=== PATIENT | female | born 1940 | race Caucasian/White ===

== ENCOUNTER 2017-04-21 12:10 | Outpatient (CLI) | payer MEDICARE, OTHER ==
[2017-04-21 18:03] LABS: BILIRUBIN,URINE NEGATIVE (NEGATIVE)
[2017-04-21 18:29] LABS: UR CULTURE IF IND INDICATED; WBC,URINE >25 /HPF (0-5)
== END 2017-04-21 12:11 | disposition home or self-care (01) ==
LOC: LAB.R 12:10
PROVIDERS: ATTEND Nurse Practitioner Family
DX: N39.0 Urinary tract infection, site not specified (principal)
CPT/HCPCS: 81001; 87086

== ENCOUNTER 2017-06-24 10:17 | Outpatient (CLI) | payer MEDICARE, OTHER | END 2017-06-24 10:18 | disposition home or self-care (01) | LOC: LAB.R 10:17 | PROVIDERS: ATTEND Nurse Practitioner Family | DX: N39.0 Urinary tract infection, site not specified (principal) | CPT/HCPCS: 87086 ==

== ENCOUNTER 2017-08-17 11:24 | Emergency (ER) | payer MEDICARE, OTHER ==
[2017-08-17 11:31] VITALS: BP 147/71
[2017-08-17] MEDS ORDERED: DEXAMETHASONE 10 MG/ML VIAL PO STA (13:40)
--- NOTE | 2017-08-17 13:43 | ED Physician Documentation ---
PD HPI SKIN - Stated complaint Stated Complaint: TORSO RASH - Chief complaint Chief Complaint: Wound - History obtained from History obtained from: Patient - History of Present Illness Timing - onset: Yesterday Timing - duration: Days (1) Timing - details: Gradual onset, Still present Location: Abdomen, RLE, LLE Quality / character: Itchy, Discolored Improved by: Benadryl Associated symptoms: No: Fever, Myalgias, Joint pain, Headache, Facial swelling , Dyspnea, Abd pain, N/V/D, Urinary sx Contributing factors: Other (recent stress with a memorial service for a friend) . No: Exposed to medication, Exposed to food, Exposed to soap / lotion, Exposed to Poison brendan/oak, Insect bite /sting, Recent illness Similar symptoms before: Has not had sx before Recently seen: Not recently seen - Additional information Additional information: Previously healthy 77-year-old female has developed some urticaria over her upper abdomen that is been quite itchy. This started out yesterday and she did take some Benadryl which helped a bit with the itching. When she awoke today she continued to have the redness and she has noted some spreading of the redness to her legs.She is under some stress but has not had any new exposures. Review of Systems Constitutional: denies: Fever Eyes: denies: Decreased vision Ears: denies: Ear pain Nose: denies: Congestion Throat: denies: Sore throat Cardiac: denies: Chest pain / pressure Respiratory: denies: Dyspnea, Cough GI: denies: Abdominal Pain, Nausea, Vomiting : denies: Dysuria, Frequency Skin: reports: Rash. 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 - Present Medications Home Medications: Ambulatory Orders Medication Instructions Recorded Confirmed Atenolol 50 mg PO DAILY 08/17/17 08/17/17 Fluticasone [Flonase] 1 sprays FUNMILAYO DAILY 08/17/17 08/17/17 Fluticasone/Salmeterol [Advair 1 each IH DAILY 08/17/17 08/17/17 100-50 Diskus] Hydrochlorothiazide 12.5 mg PO DAILY 08/17/17 08/17/17 raNITIdine [Zantac] 150 mg PO DAILY 08/17/17 08/17/17 - Allergies Allergies/Adverse Reactions: Allergies Allergy/AdvReac Type Severity Reaction Status Date / Time codeine Allergy Headache Verified 08/17/17 11:28 - Social History Does the pt smoke?: No Smoking Status: Never smoker Does the pt drink ETOH?: No Does the pt have substance abuse?: No - Immunizations Immunizations are current?: Yes - POLST Patient has POLST: No PD ED PE NORMAL - Vitals Vital signs reviewed: Yes (Hypertensive) - General General: Alert and oriented X 3, No acute distress, Well developed/nourished - HEENT HEENT: Atraumatic, PERRL, EOMI - Neck Neck: Supple, no meningeal sign - Cardiac Cardiac: RRR, No murmur - Respiratory Respiratory: No respiratory distress, Clear bilaterally - Abdomen Abdomen: Soft, Non tender - Derm Derm: Normal color, Warm and dry, Other (There is erythema with a slight raised consistent with urticaria over the abdomen and extending across the front of the abdomen to the flanks and across the anterior thighs. There is no involvement of the upper extremity and no involvement of the calves.) - Extremities Extremities: No deformity, No edema - Neuro Neuro: No motor deficit, No sensory deficit Eye Opening: Spontaneous Motor: Obeys Commands Verbal: Oriented GCS Score: 15 - Psych Psych: Normal mood, Normal affect Results - Vitals Vitals: Vital Signs - 24 hr 08/17/17 11:29 Temperature 37.0 C Heart Rate 70 Respiratory 16 Rate Blood Pressure 147/71 H O2 Saturation 97 Oxygen O2 Source Room air PD MEDICAL DECISION MAKING - ED course Complexity details: considered differential, d/w patient ED course: 77-year-old female with a urticarial reaction is given dexamethasone 10 mg orally.I have discussed with her continuing the Benadryl for the next 2 days on a regular basis and following up with Dr. De La Rosa should she have recurrence of her urticaria. Departure - Departure Disposition: 01 Home, Self Care Clinical Impression: Urticaria Condition: Stable Instructions: ED Urticaria Follow-Up: Rui De La Rosa MD [Primary Care Provider] - Comments: Take Benadryl 25-50 mg every 6 hours for the next 2 days. If your rash recurs or persists follow-up with Dr. Zaragoza
== END 2017-08-17 13:50 | disposition home or self-care (01) ==
LOC: ED 11:24
DX: L50.9 Urticaria, unspecified (principal); J45.909 Unspecified asthma, uncomplicated
CPT/HCPCS: 99282; 99283

== ENCOUNTER 2017-09-29 09:56 | Outpatient (CLI) | payer MEDICARE, OTHER ==
[2017-09-29 17:54] LABS: BASOPHILS # (AUTO) 0.1 10^3/uL (0.0-0.1); BASOPHILS % (AUTO) 0.8 %; EOSINOPHILS # (AUTO) 0.3 10^3/uL (0.0-0.7); EOSINOPHILS % (AUTO) 4.2 %; HGB - HEMOGLOBIN 12.7 g/dL (12.0-16.0); LYMPHOCYTES # (AUTO) 2.1 10^3/uL (1.5-3.5); LYMPHOCYTES % (AUTO) 28.8 %; MEAN CORPUSCULAR VOLUME 84.2 fL (81.0-99.0); MEAN PLATELET VOLUME 8.9 fL (7.9-10.8); MONOCYTES # (AUTO) 0.6 10^3/uL (0.0-1.0); MONOCYTES % (AUTO) 7.9 %; NEUTROPHILS # (AUTO) 4.3 10^3/uL (1.5-6.6); NEUTROPHILS % (AUTO) 58.3 %; PLT - PLATELET COUNT 227 10^3/uL (130-450); RED BLOOD COUNT 4.71 10^6/uL (4.20-5.40); RED CELL DISTRIBUTION WIDTH 15.7 % (12.0-15.0); WHITE BLOOD COUNT 7.3 x10^3/uL (4.8-10.8)
[2017-09-29 18:34] LABS: ALBUMIN 3.8 g/dL (3.2-5.5); ALBUMIN/GLOBULIN RATIO 1.4 (1.0-2.2); ALKALINE PHOSPHATASE 59 IU/L (42-121); ALT ALANINE AMINOTRANSFERASE 23 IU/L (10-60); AST ASPARTATE AMINOTRANSFERASE 20 IU/L (10-42); BILIRUBIN,TOTAL 0.5 mg/dL (0.2-1.0); BUN - BLOOD UREA NITROGEN 22 mg/dL (6-20); CALCIUM 9.2 mg/dL (8.5-10.3); CARBON DIOXIDE - CO2 28 mmol/L (21-32); CHLORIDE 106 mmol/L (101-111); CHOL/HDL RATIO 3.3 (<4.4); CHOLESTEROL 180 mg/dL; CREATININE 0.8 mg/dL (0.4-1.0); GFR - MDRD 70 (>89); GLUCOSE 91 mg/dL (70-100); HDL CHOLESTEROL 55 mg/dL; LDL CHOLESTEROL,CALCULATED 114 mg/dL; LDL/HDL RATIO 2.1 (<4.4); SODIUM 140 mmol/L (135-145); TOTAL PROTEIN 6.5 g/dL (6.7-8.2); VLDL CHOLESTEROL 11 mg/dL
== END 2017-09-29 09:57 | disposition home or self-care (01) ==
LOC: LAB.F 09:56
PROVIDERS: ATTEND Family Medicine
DX: I10 Essential (primary) hypertension (principal); Z13.220 Encounter for screening for lipoid disorders; E01.0 Iodine-deficiency related diffuse (endemic) goiter
CPT/HCPCS: 36415; 80053; 80061; 83721; 84443; 85025

== ENCOUNTER 2018-06-03 10:25 | Outpatient (CLI) | payer MEDICARE, OTHER ==
--- NOTE | 2018-06-04 09:04 | DEXA Report ---
Reason: ASYMPTOMATIC MENOPAUSAL STATE Procedure Date: 06/03/2018 Accession Number: [id number] / [id number] Procedure: DEX - Dexa Spine and/or Hip CPT Code: FULL RESULT: EXAM: Dexa Spine and/or Hip DATE: 06/03/2018 12:07 PM CLINICAL HISTORY: ASYMPTOMATIC MENOPAUSAL STATE TECHNIQUE: Dual energy x-ray absorptiometry (DXA) was performed on a [employer] System. Regions measured are the AP Spine, femoral neck, and if needed forearm. COMPARISON: None. In accordance with the International Society for Clinical Densitometry (ISCD) guidelines, data from previous exams may be reanalyzed using current recommendations and techniques. This is done to allow a more accurate basis for comparison with the current study. FINDINGS: The data for the lumbar spine is as follows: BMD (g/cm/cm) T-SCORE Z-SCORE REGION L1 0.992 -1.1 -0.1 L2 1.080 -1.0 0.1 L3 1.180 -0.2 0.9 L4 1.028 -1.4 -0.4 TOTAL 1.070 -0.9 0.1 NOTE: All evaluable vertebrae are used for classification The data for the hip is as follows: BMD (g/cm/cm) T-SCORE Z-SCORE REGION Neck 0.895 -1.0 0.5 TOTAL 0.869 -1.1 0.2 NOTE: The femoral neck or total proximal femur, whichever is lowest, is used for classification. IMPRESSION: THE WHO CLASSIFICATION BASED ON THE INTERNATIONAL REFERENCE STANDARD IS OSTEOPENIA. THE FRACTURE RISK IS INCREASED. RECOMMENDATION: Patients with diagnosis of osteoporosis or osteopenia should have regular bone mineral density assessment. For those eligible for Medicare, routine testing is allowed once every 2 years. Testing frequency can be increased for patients who have rapidly progressing disease or for those who are receiving medical therapy to restore bone mass. COMMENT: World Health Organization (WHO) definitions for osteoporosis and osteopenia: NORMAL BMD: T-score at -1.0 or higher, fracture risk is low OSTEOPENIA BMD: T-score between -1.0 and -2.5, fracture risk is increased. OSTEOPOROSIS BMD: T-score at -2.5 or lower, fracture risk is high. National Osteoporosis Foundation recommends: 1. Obtain adequate dietary calcium (at least 1200 mg per day) and vitamin D (400-800 international units per day). 2. Participate, as appropriate, in regular weightbearing and muscle-strengthening exercise. 3. Avoid tobacco use and reduce alcohol and caffeine intake. 4. For more detailed information see the website at www.NOF.org.
== END 2018-06-03 10:26 | disposition home or self-care (01) ==
LOC: DI 10:25
PROVIDERS: ATTEND Internal Medicine
DX: M85.89 Other specified disorders of bone density and structure, multiple sites (principal); Z78.0 Asymptomatic menopausal state
CPT/HCPCS: 77080

== ENCOUNTER 2019-02-26 08:00 | Outpatient (CLI) | payer MEDICARE, OTHER | END 2019-02-26 23:59 | disposition home or self-care (01) | LOC: LAB.F 08:00 | PROVIDERS: ATTEND Registered Nurse | DX: N30.90 Cystitis, unspecified without hematuria (principal) | CPT/HCPCS: 81002 ==

== ENCOUNTER 2019-03-04 16:16 | Outpatient (CLI) | payer MEDICARE, OTHER | END 2019-03-04 23:59 | disposition home or self-care (01) | LOC: LAB.R 16:16 | PROVIDERS: ATTEND Family Medicine | DX: N30.90 Cystitis, unspecified without hematuria (principal) | CPT/HCPCS: 87077; 87086; 87181 ==

== ENCOUNTER 2019-03-10 15:31 | Outpatient (CLI) | payer MEDICARE, OTHER ==
--- NOTE | 2019-03-15 14:56 | Mammography Report ---
Reason: SCREENING MAMMO Procedure Date: 03/10/2019 Accession Number: [id number] / [id number] Procedure: ALDAIR - Screening Mammo w/Rufus CPT Code: FULL RESULT: EXAM: Screening Mammo w/Rufus DATE: 03/10/2019 4:07 PM CLINICAL HISTORY: Routine screening TECHNIQUE: (B) - Bilateral CC and MLO views were obtained. COMPARISON: 05/06/2016 and 03/09/2014 PARENCHYMAL PATTERN: (A) - The breasts demonstrate scattered fibroglandular densities bilaterally. FINDINGS: No significant interval change. There are no suspicious masses, calcifications, or areas of distortion. IMPRESSION: Negative examination. BI-RADS category 1. RECOMMENDATION: (ANNUAL) - Recommend routine annual screening mammography. BI-RADS CATEGORY: (1) - Negative. STANDARD QUALIFYING STATEMENTS: 1. This examination was not reviewed with the aid of Computer-Aided Detection (CAD). 2. A negative or benign imaging report should not preclude biopsy if clinically suspicious findings are present. 3. Dense breasts may obscure an underlying neoplasm. 4. This examination was reviewed with the aid of 3D breast imaging (tomosynthesis).
== END 2019-03-10 15:32 | disposition home or self-care (01) ==
LOC: DI 15:31
DX: Z12.31 Encounter for screening mammogram for malignant neoplasm of breast (principal)
CPT/HCPCS: 77063; 77067

== ENCOUNTER 2019-10-27 12:29 | Emergency (ER) | payer MEDICARE, OTHER ==
--- NOTE | 2019-10-27 13:02 | ED Physician Documentation ---
PD HPI HEAD INJURY - Stated complaint Stated Complaint: GLF/HEAD LAC/LT KNEE INJURY - Chief complaint Chief Complaint: Trauma Hd/Nk - History obtained from History obtained from: Patient - History of Present Illness Mechanism of head injury: Fell (she was dragging branch and tripped on uneven edge in driveway and fell forward onto knees and elbow and struck top of head against object. no LOC, not on blood thinners. No LOC nor confusion. Has lac frontal scalp, right anterior knee and left elbow.) Timing - onset: Today Location of injury: Front Associated symptoms: No: LOC, AMS, Nausea / vomiting Symptoms worsen with: Palpation, Movement Contributing factors: No: Anticoagulated, Intoxicated Similar symptoms before: Has not had sx before Recently seen: Not recently seen Review of Systems Eyes: denies: Loss of vision, Photophobia Ears: denies: Ear pain, Drainage/discharge Throat: denies: Sore throat Respiratory: denies: Cough Neurologic: denies: Generalized weakness, Focal weakness, Numbness, Difficulty speaking Psychiatric: denies: Hallucinations Endocrine: denies: Weight loss PD PAST MEDICAL HISTORY - Past Medical History Cardiovascular: None Respiratory: Asthma Neuro: None Endocrine/Autoimmune: None - Past Surgical History Past Surgical History: Yes General: 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, 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 - Present Medications Home Medications: Ambulatory Orders Medication Instructions Recorded Confirmed Fluticasone [Flonase] 1 sprays FUNMILAYO DAILY 08/17/17 08/17/17 Fluticasone/Salmeterol [Advair 1 each IH DAILY 08/17/17 08/17/17 100-50 Diskus] Hydrochlorothiazide 12.5 mg PO DAILY 08/17/17 08/17/17 atenoloL [Atenolol] 50 mg PO DAILY 08/17/17 08/17/17 raNITIdine [Zantac] 150 mg PO DAILY 08/17/17 08/17/17 - Allergies Allergies/Adverse Reactions: Allergies Allergy/AdvReac Type Severity Reaction Status Date / Time codeine Allergy Headache Verified 10/27/19 12:57 - Social History Does the pt smoke?: No Smoking Status: Never smoker Does the pt drink ETOH?: No Does the pt have substance abuse?: No - Immunizations Immunizations are current?: Yes - POLST Patient has POLST: No PD ED PE NORMAL - Vitals Vital signs reviewed: Yes - General General: Alert and oriented X 3, No acute distress, Well developed/nourished - HEENT HEENT: PERRL, EOMI, Pharynx benign, Dentition benign, Other (frontal scalpe with 3 cm laceration through scalp. NO FB nor active bleeding. ) - Neck Neck: Supple, no meningeal sign, No bony TTP, No adenopathy - Cardiac Cardiac: RRR, No murmur - Respiratory Respiratory: Clear bilaterally - Abdomen Abdomen: Soft, Non tender - Derm Derm: Normal color, Warm and dry - Extremities Extremities: Other (superficial avulsion of skin left knee. Laceration anterior right knee. Laceration left elbow through skin and exposing edge of bursa. Both joints have good full ROM. No joint effusion. ) - Neuro Neuro: Alert and oriented X 3, No motor deficit, No sensory deficit, Normal speech Results - Vitals Vitals: Vital Signs - 24 hr 10/27/19 10/27/19 12:50 14:48 Temperature 36.8 C 36.6 C Heart Rate 88 85 Respiratory 16 17 Rate Blood Pressure 136/98 H 127/85 H O2 Saturation 98 97 Oxygen O2 Source Room air Procedures - Laceration (location) frontal scalp Length in cm: 2.5 Wound type: Linear, Into subcut fat, Clean Neurovascular status: Sensory intact, Motor intact, Vascular intact Anesthesia: LET Wound Preparation: Irrigated copiously NS, Wound explored, To the base. No: FB identified Skin layer closure: Running Other: Patient tolerated well, No complications, Neurovascular intact, Tetanus UTD Complexity: Simple left elbow Length in cm: 2 Wound type: Linear, Into subcut fat (edge of bursa visible but not injured), Clean Neurovascular status: Sensory intact, Motor intact, Vascular intact Anesthesia: Lidocaine 2% with epi Wound Preparation: Irrigated copiously NS, Wound explored, To the base. No: FB identified Skin layer closure: Nylon, Prolene, Seymour, Running, Size #-0 - enter number (4) Other: Patient tolerated well, No complications right knee Length in cm: 3 Wound type: Irregular, Into subcut fat, Clean Neurovascular status: Sensory intact, Motor intact, Vascular intact Tendon involvement: Tendon intact. No: Tendon Injury Anesthesia: LET Wound Preparation: Irrigated copiously NS, Wound explored, To the base, Wound edges modified. No: FB identified Skin layer closure: Nylon, Interrupted, Running, Size #-0 - enter number PD MEDICAL DECISION MAKING - ED course Complexity details: considered differential (no concussive symptoms. No clinical bony fractures nor articular joint involvement. ), d/w patient Departure - Departure Disposition: 01 Home, Self Care Clinical Impression: Fall from slip, trip, or stumble Qualifiers: Encounter type: initial encounter Qualified Code(s): W01.0XXA - Fall on same level from slipping, tripping and stumbling without subsequent striking against object, initial encounter Scalp laceration Qualifiers: Encounter type: initial encounter Qualified Code(s): S01.01XA - Laceration without foreign body of scalp, initial encounter Knee laceration Qualifiers: Encounter type: initial encounter Laterality: left Qualified Code(s): S81.012A - Laceration without foreign body, left knee, initial encounter Elbow laceration Qualifiers: Encounter type: initial encounter Laterality: left Qualified Code(s): S51.012A - Laceration without foreign body of left elbow, initial encounter Condition: Stable Record reviewed to determine appropriate education?: Yes Instructions: ED Laceration All Follow-Up: Sarthak San MD [Primary Care Provider] - Comments: Keep the knee laceration with the Steri-Strips dry for a few days until the Steri-Strips fall off. Then assume normal wound care with cleaning gently with soap and water and applying antibiotic ointment. You can do that initially to the other lacerations right off with the scalp and the elbow. it is okay to wash and shower. Clean off the wound twice a day with soap and water, or peroxide and water. Apply some antibiotic ointment to it to keep it moist. Also to watch for signs of infection such as purulence, redness or increasing pain. Return to your primary care or the ER at the specified time for suture removal. Suture removal 10 to 12 days. Discharge Date/Time: 10/27/19 14:48
[2019-10-27] MEDS ORDERED: LIDOCAINE-EPINEPH-TETRACAINE 3 ML SYRINGE TOP STA (13:16)
[2019-10-27] MEDS ORDERED: ACETAMINOPHEN 325 MG TABLET PO STA (13:17)
[2019-10-27] MEDS ORDERED: LIDOCAINE 2%-EPI 1:100000 20 ML MDV SUBQ STA (13:17)
[2019-10-27] MEDS ORDERED: BACITRACIN ZINC OINT 1 PACKET TOP STA (14:30)
[2019-10-27 14:49] VITALS: BP 127/85
== END 2019-10-27 14:48 | disposition home or self-care (01) ==
LOC: ED 12:29
DX: S01.01XA Laceration without foreign body of scalp, initial encounter (principal); S81.011A Laceration without foreign body, right knee, initial encounter; S51.012A Laceration without foreign body of left elbow, initial encounter; W01.10XA Fall on same level from slipping, tripping and stumbling with subsequent striking against unspecified object, initial encounter; Y93.H2 Activity, gardening and landscaping; Y92.008 Other place in unspecified non-institutional (private) residence as the place of occurrence of the external cause
CPT/HCPCS: 12002; 99282; 99284; A9270

== ENCOUNTER 2020-01-10 14:02 | Outpatient (CLI) | payer MEDICARE, OTHER ==
--- NOTE | 2020-01-10 18:05 | XRAY Report ---
PROCEDURE: Chest 2 View X-Ray INDICATIONS: CHRONIC COUGH TECHNIQUE: 2 view(s) of the chest. COMPARISON: 11/20/2015 and 01/29/2016. FINDINGS: Surgical changes and devices: None. Lungs and pleura: No pleural effusions or pneumothorax. Lungs are clear of acute opacities. Focal o pacity in the lateral periphery of the left lung base is stable compared to prior exams. Mediastinum: Mediastinal contours are normal. Heart size is normal. Bones and chest wall: No suspicious bony abnormalities. Soft tissues appear unremarkable. IMPRESSION: No acute cardiopulmonary disease process. Reviewed by: Marychuy Reddy MD, PhD on 01/10/2020 6:04 PM PDT Approved by: Marychuy Reddy MD, PhD on 01/10/2020 6:04 PM PDT Station ID: [id number]
[2020-01-10 20:03] LABS: BASOPHILS # (AUTO) 0.1 10^3/uL (0.0-0.1); BASOPHILS % (AUTO) 0.7 %; EOSINOPHILS # (AUTO) 0.1 10^3/uL (0.0-0.7); HGB - HEMOGLOBIN 13.2 g/dL (12.0-16.0); LYMPHOCYTES # (AUTO) 2.2 10^3/uL (1.5-3.5); LYMPHOCYTES % (AUTO) 20.9 %; MEAN CORPUSCULAR HEMOGLOBIN 28.1 pg (27.0-31.0); MEAN CORPUSCULAR HGB CONC 30.8 g/dL (32.0-36.0); MEAN CORPUSCULAR VOLUME 91.1 fL (81.0-99.0); MONOCYTES # (AUTO) 0.7 10^3/uL (0.0-1.0); MONOCYTES % (AUTO) 6.4 %; NEUTROPHILS # (AUTO) 7.4 10^3/uL (1.5-6.6); NEUTROPHILS % (AUTO) 70.5 %; PLT - PLATELET COUNT 282 10^3/uL (130-450); RED CELL DISTRIBUTION WIDTH 14.8 % (12.0-15.0); WHITE BLOOD COUNT 10.6 x10^3/uL (4.8-10.8)
[2020-01-10 20:20] LABS: ALBUMIN 4.2 g/dL (3.2-5.5); ALBUMIN/GLOBULIN RATIO 1.8 (1.0-2.2); BILIRUBIN,TOTAL 0.9 mg/dL (0.2-1.0); CALCIUM 9.9 mg/dL (8.5-10.3); TOTAL PROTEIN 6.6 g/dL (6.7-8.2)
== END 2020-01-10 14:03 | disposition home or self-care (01) ==
LOC: DI.S 14:02
PROVIDERS: ATTEND Family Medicine
DX: R05 Cough (principal); J20.9 Acute bronchitis, unspecified
CPT/HCPCS: 36415; 71046; 80053; 85025

== ENCOUNTER 2020-04-17 13:00 | Outpatient (CLI) | payer MEDICARE, OTHER | END 2020-04-17 23:59 | disposition home or self-care (01) | LOC: LAB.R 13:00 | PROVIDERS: ATTEND Physician Assistant | DX: N39.0 Urinary tract infection, site not specified (principal) | CPT/HCPCS: 87077; 87086; 87181 ==

== ENCOUNTER 2020-05-18 08:00 | Outpatient (CLI) | payer MEDICARE, OTHER | END 2020-05-18 23:59 | disposition home or self-care (01) | LOC: LAB.R 08:00 | PROVIDERS: ATTEND Physician Assistant Medical | DX: R31.9 Hematuria, unspecified (principal) | CPT/HCPCS: 87077; 87086; 87181 ==

== ENCOUNTER 2020-07-27 08:00 | Outpatient (CLI) | payer MEDICARE, OTHER | END 2020-07-27 23:59 | disposition home or self-care (01) | LOC: LAB.S 08:00 | PROVIDERS: ATTEND Physician Assistant | DX: N39.0 Urinary tract infection, site not specified (principal) | CPT/HCPCS: 87086 ==

== ENCOUNTER 2020-08-21 09:45 | Outpatient (CLI) | payer MEDICARE, OTHER ==
--- NOTE | 2020-08-21 15:07 | DEXA Report ---
PROCEDURE: Dexa Spine and/or Hip INDICATIONS: POST MENOPAUSAL TECHNIQUE: Dual energy x-ray absorptiometry (DXA) was performed on a [employer] System. Regions measur ed are the AP Spine, femoral neck, and if needed forearm. COMPARISON: DEXA 06/03/2018 FINDINGS: Lumbar Spine: Bone Mineral Density 1.098 g/cm/cm,T score -0.7, compared to -0.9 Left Hip: Bone Mineral Density 0.827 g/cm/cm,T score -1.4, compared to -1.1 Left Femoral Neck: Bone Mineral Density 0.838 g/cm/cm, T score -1.4, compared to -1.0 (T score greater or equal to -1.0: NORMAL) (T score from -1.1 to -2.4: OSTEOPENIA) (T score less than or equal to -2.5 to: OSTEOPOROSIS) Impression: Mild osteopenia within the left hip and femoral neck, slightly progressive compared to pr ior exam. Patients with diagnosis of osteoporosis or osteopenia should have regular bone mineral density assess ment. For those eligible for Medicare, routine testing is allowed once every 2 years. Testing frequ ency can be increased for patients who have rapidly progressing disease or for those who are receivin g medical therapy to restore bone mass. Reviewed by: Teri Haro MD on 08/21/2020 2:06 PM [facility] Approved by: Teri Haro MD on 08/21/2020 2:06 PM [facility] Station ID: [id number]
== END 2020-08-21 09:46 | disposition home or self-care (01) ==
LOC: DI 09:45
PROVIDERS: ATTEND Registered Nurse
DX: M85.88 Other specified disorders of bone density and structure, other site (principal); Z78.0 Asymptomatic menopausal state

== ENCOUNTER 2021-01-12 09:21 | Outpatient (CLI) | payer MEDICARE, OTHER ==
[2021-01-12 14:29] LABS: BASOPHILS # (AUTO) 0.1 10^3/uL (0.0-0.1); BASOPHILS % (AUTO) 0.9 %; EOSINOPHILS # (AUTO) 0.1 10^3/uL (0.0-0.7); EOSINOPHILS % (AUTO) 1.8 %; HCT - HEMATOCRIT 41.6 % (37.0-47.0); HGB - HEMOGLOBIN 13.1 g/dL (12.0-16.0); LYMPHOCYTES # (AUTO) 1.8 10^3/uL (1.5-3.5); LYMPHOCYTES % (AUTO) 25.6 %; MEAN CORPUSCULAR HEMOGLOBIN 28.5 pg (27.0-31.0); MEAN CORPUSCULAR HGB CONC 31.5 g/dL (32.0-36.0); MEAN CORPUSCULAR VOLUME 90.4 fL (81.0-99.0); MEAN PLATELET VOLUME 10.6 fL (7.9-10.8); MONOCYTES # (AUTO) 0.4 10^3/uL (0.0-1.0); MONOCYTES % (AUTO) 6.3 %; NEUTROPHILS # (AUTO) 4.6 10^3/uL (1.5-6.6); NEUTROPHILS % (AUTO) 65.1 %; PLT - PLATELET COUNT 225 10^3/uL (130-450); RED CELL DISTRIBUTION WIDTH 15.2 % (12.0-15.0)
[2021-01-12 15:01] LABS: ALBUMIN 3.9 g/dL (3.2-5.5); ALBUMIN/GLOBULIN RATIO 1.6 (1.0-2.2); ALKALINE PHOSPHATASE 62 IU/L (42-121); ALT ALANINE AMINOTRANSFERASE 24 IU/L (10-60); AST ASPARTATE AMINOTRANSFERASE 24 IU/L (10-42); BILIRUBIN,TOTAL 0.9 mg/dL (0.2-1.0); BUN - BLOOD UREA NITROGEN 17 mg/dL (6-20); CALCIUM 9.1 mg/dL (8.5-10.3); CARBON DIOXIDE - CO2 29 mmol/L (21-32); CHLORIDE 101 mmol/L (101-111); CHOL/HDL RATIO 2.8 (<4.4); CHOLESTEROL 167 mg/dL; CREATININE 0.7 mg/dL (0.4-1.0); GFR - MDRD 81 (>89); GLUCOSE 96 mg/dL (70-100); HDL CHOLESTEROL 59 mg/dL; LDL CHOLESTEROL,CALCULATED 97 mg/dL; LDL/HDL RATIO 1.6 (<4.4); POTASSIUM 3.6 mmol/L (3.5-5.0); SODIUM 138 mmol/L (135-145); TOTAL PROTEIN 6.4 g/dL (6.7-8.2); TRIGLYCERIDES 53 mg/dL; VLDL CHOLESTEROL 11 mg/dL
[2021-01-12 15:21] LABS: THYROID STIMULATING HORMONE 2.42 uIU/mL (0.34-5.60)
== END 2021-01-12 09:22 | disposition home or self-care (01) ==
LOC: LAB.S 09:21
PROVIDERS: ATTEND Registered Nurse
DX: R05 Cough (principal); I10 Essential (primary) hypertension; J45.901 Unspecified asthma with (acute) exacerbation
CPT/HCPCS: 36415; 80053; 80061; 83721; 84443; 85025

== ENCOUNTER 2021-04-19 11:25 | Outpatient (CLI) | payer MEDICARE, OTHER ==
--- NOTE | 2021-04-20 09:01 | Mammography Report ---
BILATERAL DIGITAL SCREENING MAMMOGRAM 3D/2D: 04/19/2021 CLINICAL: Routine screening. Comparison is made to exams dated: 03/10/2019 mammogram, 05/06/2016 mammogram, and 03/09/2014 mammogram - [facility]. There are scattered fibroglandular elements in both breasts. No significant masses, calcifications, or other findings are seen in either breast. There has been no significant interval change. IMPRESSION: NEGATIVE There is no mammographic evidence of malignancy. A 1 year screening mammogram is recommended. This exam was interpreted at Station ID: [id number]. NOTE: For mammograms, a report in lay terms will be sent to the patient. Approximately 15% of breast malignancies will not be visualized mammographically. In the management of a palpable breast mass, a negative mammogram must not discourage biopsy of a clinically suspicious lesion. Electronically Signed By: Glen Jewell M.D. slc/penrad:04/19/2021 12:48:26 ACR BI-RADS Category 1: Negative 3341F PARENCHYMAL PATTERN: (A) - The breast(s) demonstrate(s) scattered fibroglandular densities. BI-RADS CATEGORY: (1) - 1 RECOMMENDATION: (ANNUAL) - Recommend routine annual screening mammography. [id number] 1 year screening LATERALITY: (B)
== END 2021-04-19 11:26 | disposition home or self-care (01) ==
LOC: DI 11:25
PROVIDERS: ATTEND Internal Medicine
DX: Z12.31 Encounter for screening mammogram for malignant neoplasm of breast (principal)

== ENCOUNTER 2021-05-14 06:17 | Day surgery (SDC) | payer MEDICARE, OTHER ==
[2021-05-14 06:54] VITALS: BP 138/87
[2021-05-14] MEDS ORDERED: LACTATED RINGERS 1,000 ML IV ONE (07:01)
== END 2021-05-14 06:18 | disposition home or self-care (01) ==
LOC: SDS 06:17
PROVIDERS: ATTEND Surgery
DX: Z12.11 Encounter for screening for malignant neoplasm of colon (principal); I48.91 Unspecified atrial fibrillation; Z53.9 Procedure and treatment not carried out, unspecified reason

== ENCOUNTER 2021-05-14 07:50 | Emergency (ER) | payer MEDICARE, OTHER ==
[2021-05-14 08:12] LABS: BASOPHILS # (AUTO) 0.1 10^3/uL (0.0-0.1); BASOPHILS % (AUTO) 0.5 %; EOSINOPHILS % (AUTO) 0.4 %; HCT - HEMATOCRIT 43.6 % (37.0-47.0); HGB - HEMOGLOBIN 14.2 g/dL (12.0-16.0); LYMPHOCYTES # (AUTO) 2.2 10^3/uL (1.5-3.5); LYMPHOCYTES % (AUTO) 21.9 %; MEAN CORPUSCULAR HEMOGLOBIN 28.9 pg (27.0-31.0); MEAN CORPUSCULAR HGB CONC 32.6 g/dL (32.0-36.0); MEAN CORPUSCULAR VOLUME 88.6 fL (81.0-99.0); MEAN PLATELET VOLUME 10.3 fL (7.9-10.8); MONOCYTES # (AUTO) 0.8 10^3/uL (0.0-1.0); MONOCYTES % (AUTO) 7.6 %; NEUTROPHILS # (AUTO) 6.8 10^3/uL (1.5-6.6); NEUTROPHILS % (AUTO) 69.3 %; PLT - PLATELET COUNT 257 10^3/uL (130-450); RED BLOOD COUNT 4.92 10^6/uL (4.20-5.40); RED CELL DISTRIBUTION WIDTH 15.1 % (12.0-15.0); WHITE BLOOD COUNT 9.9 x10^3/uL (4.8-10.8)
--- NOTE | 2021-05-14 08:25 | XRAY Report ---
PROCEDURE: Chest 1 View X-Ray INDICATIONS: Chest pain TECHNIQUE: One view of the chest was acquired. COMPARISON: CXR 01/10/2020. FINDINGS: Surgical changes and devices: None. Lungs and pleura: No pleural effusions or pneumothorax. Lungs appear clear and unchanged. Mediastinum: Mediastinal contours are unchanged. Heart size is prominent. Bones and chest wall: No suspicious bony lesions. Overlying soft tissues appear unremarkable. IMPRESSION: No acute cardiopulmonary abnormality identified. Reviewed by: Glen Jewell MD on 05/14/2021 8:24 AM PST Approved by: Glen Jewell MD on 05/14/2021 8:24 AM PST Station ID: [id number]
[2021-05-14 08:27] LABS: ALBUMIN/GLOBULIN RATIO 1.4 (1.0-2.2); BILIRUBIN,TOTAL 1.2 mg/dL (0.2-1.0); CALCIUM 9.6 mg/dL (8.5-10.3); CREATININE 0.8 mg/dL (0.4-1.0); POTASSIUM 2.9 mmol/L (3.5-5.0); TOTAL PROTEIN 6.8 g/dL (6.7-8.2)
--- NOTE | 2021-05-14 08:51 | ED Physician Documentation ---
History of Present Illness - Stated complaint Stated Complaint: NEW AFIB - Chief complaint Chief Complaint: Cardiac - History obtained from History obtained from: Patient - Additonal information Additional information: Patient sent to the emergency department from preop for chief complaint of new onset atrial fibrillation. The patient was here for colonoscopy and was being put on the monitor by anesthesia when they noticed she was in A. fib. Patient has no known history of A. fib, though she did have a brief dysrhythmia some years ago after being put on antibiotics. Patient states she has had no symptoms whatsoever. No chest pain or shortness of breath. No palpitations. No lightheadedness. She states she is otherwise fairly healthy. Her has atrial fibrillation, so she is very familiar with this malady. Review of Systems Ten Systems: 10 systems reviewed and negative Constitutional: reports: Reviewed and negative Eyes: reports: Reviewed and negative Ears: reports: Reviewed and negative Nose: reports: Reviewed and negative Throat: reports: Reviewed and negative Cardiac: reports: Reviewed and negative Respiratory: reports: Reviewed and negative GI: reports: Reviewed and negative : reports: Reviewed and negative Skin: reports: Reviewed and negative Musculoskeletal: reports: Reviewed and negative Neurologic: reports: Reviewed and negative Psychiatric: reports: Reviewed and negative Endocrine: reports: Reviewed and negative Immunocompromised: reports: Reviewed and negative PD PAST MEDICAL HISTORY - Past Medical History Cardiovascular: None Respiratory: Asthma Neuro: None Endocrine/Autoimmune: None - Past Surgical History Past Surgical History: Yes General: 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, Bowel surgery, 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 - Present Medications Home Medications: Ambulatory Orders Medication Instructions Recorded Confirmed Fluticasone [Flonase] 1 sprays FUNMILAYO DAILY 08/17/17 05/14/21 Fluticasone/Salmeterol [Advair 1 each IH DAILY 08/17/17 05/14/21 100-50 Diskus] atenoloL [Atenolol] 50 mg PO DAILY 08/17/17 05/14/21 hydroCHLOROthiazide 12.5 mg PO DAILY 08/17/17 05/14/21 [Hydrochlorothiazide] raNITIdine [Zantac] 150 mg PO DAILY 08/17/17 05/14/21 Apixaban [Eliquis] 2.5 mg PO DAILY #14 tablet 05/14/21 Potassium Chloride [K-Dur] 20 meq PO BIDWM #28 tablet 05/14/21 diltiaZEM CD [Cardizem Cd] 120 mg PO DAILY #14 05/14/21 - Allergies Allergies/Adverse Reactions: Allergies Allergy/AdvReac Type Severity Reaction Status Date / Time cat dander Allergy Unknown Verified 05/14/21 08:04 codeine Allergy Headache Verified 05/14/21 08:04 grass pollen Allergy Unknown Verified 05/14/21 08:04 levofloxacin [From Levaquin] Allergy Unknown Verified 05/14/21 08:04 mold Allergy Unknown Verified 05/14/21 08:04 dust Allergy Unknown Uncoded 05/14/21 08:04 mites Allergy Unknown Uncoded 05/14/21 08:04 - Social History Does the pt smoke?: No Smoking Status: Never smoker Does the pt drink ETOH?: No Does the pt have substance abuse?: No - Immunizations Immunizations are current?: Yes - POLST Patient has POLST: No PD ED PE NORMAL - Vitals Vital signs reviewed: Yes - General General: Alert and oriented X 3, No acute distress, Well developed/nourished - HEENT HEENT: Atraumatic, PERRL, EOMI, Moist mucous membranes - Neck Neck: Supple, no meningeal sign - Cardiac Cardiac: No murmur, Strong equal pulses, Other (Irregular rhythm normal rate.) - Respiratory Respiratory: No respiratory distress, Clear bilaterally - Abdomen Abdomen: Soft, Non tender, Non distended - Derm Derm: Normal color, Warm and dry, No rash - Extremities Extremities: No deformity, No edema, No calf tenderness / cord - Neuro Neuro: Alert and oriented X 3, 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, Normal speech, Other (Grossly intact) - Psych Psych: Normal mood, Normal affect Results - Vitals Vitals: Oxygen O2 Source Room air - EKG (time done) 0759 Rate: Rate (enter#) (86) Rhythm: Atrial fibrillation Winn: Normal QRS: LVH Ischemia: Normal ST segments Compare to prior EKG: Old EKG unavailable Computer interpretation: Agree with computer - Labs Labs: Laboratory Tests 05/14/21 05/14/21 05/14/21 07:56 07:56 07:56 WBC 9.9 RBC 4.92 Hgb 14.2 Hct 43.6 MCV 88.6 MCH 28.9 MCHC 32.6 RDW 15.1 H Plt Count 257 MPV 10.3 Neut # (Auto) 6.8 H Lymph # (Auto) 2.2 [place] # (Auto) 0.8 Eos # (Auto) 0.0 Baso # (Auto) 0.1 Absolute Nucleated RBC 0.00 Nucleated RBC % 0.0 Sodium 138 Potassium 2.9 L Chloride 99 L Carbon Dioxide 26 Anion Gap 13.0 BUN 14 Creatinine 0.8 Estimated GFR (MDRD) 69 L Glucose 112 H Calcium 9.6 Total Bilirubin 1.2 H AST 24 ALT 21 Alkaline Phosphatase 70 Troponin I High Sens 13.1 Total Protein 6.8 Albumin 4.0 Globulin 2.8 Albumin/Globulin Ratio 1.4 Lipase 30 - Rads (name of study) CXR Radiology: Final report received, EMP read indepedently, See rad report (neg) PD MEDICAL DECISION MAKING - ED course Complexity details: reviewed results, re-evaluated patient, considered differential, d/w patient ED course: Worked up with EKG, chest x-ray, and labs, all of which were unremarkable except for EKG showing atrial fibrillation. Unfortunately, there was no clear initiation point for the atrial fibrillation, so I did not feel it would be prudent to do a cardioversion. The pt remained stable and rate-controlled in the ED. Her potassium was low, so I have started her on K-dur. She also received a dose of Eliquis in the ED. I will prescribe both of these, plus oral Cardizem as an outpatient. She is advised to make an appt to follow up with her PCP as soon as possible regarding her atrial fibrillation. We have discussed the usual indications for return. Departure - Departure Disposition: 01 Home, Self Care Clinical Impression: Hypokalemia Atrial fibrillation Qualifiers: Atrial fibrillation type: unspecified Qualified Code(s): I48.91 - Unspecified atrial fibrillation Condition: Stable Instructions: ED Afib, ED Potassium Deficiency Prescriptions: diltiaZEM CD [Cardizem Cd] 120 mg PO DAILY #14 Apixaban [Eliquis] 2.5 mg PO DAILY #14 tablet Potassium Chloride [K-Dur] 20 meq PO BIDWM #28 tablet Comments: Your heart rate is very well controlled, but you are in atrial fibrillation. Your potassium is also significantly low, and this very well may be from the colon cleanse you just did. What we will do for now is put you on a potassium supplement for the next week and also, on a medication to help control the heart rate associated with your A. fib and hopefully, allow your heart is normal pacemaker to jump back in and start controlling your heart rate and rhythm. We will also for the time being put you on an oral blood thinner to make sure you do not form a clot while you are in A. fib. I would like you to make a follow- up appointment with your primary care provider for sometime this week so that you can be rechecked both for your potassium and for the A. 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 Once these issues are taken care of, you can speak with your doctor about rescheduling your colonoscopy. Discharge Date/Time: 05/14/21 10:01
[2021-05-14 09:12] VITALS: BP 149/81
[2021-05-14] MEDS ORDERED: diltiaZEM CD 120 MG CAPSULE PO STA (09:29)
[2021-05-14] MEDS ORDERED: APIXABAN 5 MG TABLET PO STA (09:29)
[2021-05-14] MEDS ORDERED: POTASSIUM CHLORIDE 20 MEQ TABLET PO STA (09:29)
== END 2021-05-14 10:01 | disposition home or self-care (01) ==
LOC: ED 07:50
DX: E87.6 Hypokalemia (principal); I48.91 Unspecified atrial fibrillation
CPT/HCPCS: 36415; 80053; 83690; 84484; 85025; 93005; 99283; 99284

== ENCOUNTER 2021-06-04 13:07 | Outpatient (CLI) | payer MEDICARE, OTHER ==
[2021-06-04 20:03] LABS: BASOPHILS # (AUTO) 0.1 10^3/uL (0.0-0.1); BASOPHILS % (AUTO) 0.8 %; EOSINOPHILS # (AUTO) 0.1 10^3/uL (0.0-0.7); EOSINOPHILS % (AUTO) 1.3 %; HCT - HEMATOCRIT 42.4 % (37.0-47.0); HGB - HEMOGLOBIN 13.3 g/dL (12.0-16.0); LYMPHOCYTES # (AUTO) 2.1 10^3/uL (1.5-3.5); LYMPHOCYTES % (AUTO) 20.6 %; MEAN CORPUSCULAR HEMOGLOBIN 28.7 pg (27.0-31.0); MEAN CORPUSCULAR HGB CONC 31.4 g/dL (32.0-36.0); MEAN CORPUSCULAR VOLUME 91.4 fL (81.0-99.0); MEAN PLATELET VOLUME 10.7 fL (7.9-10.8); MONOCYTES # (AUTO) 0.6 10^3/uL (0.0-1.0); MONOCYTES % (AUTO) 5.7 %; NEUTROPHILS # (AUTO) 7.1 10^3/uL (1.5-6.6); NEUTROPHILS % (AUTO) 71.3 %; PLT - PLATELET COUNT 275 10^3/uL (130-450); RED BLOOD COUNT 4.64 10^6/uL (4.20-5.40); RED CELL DISTRIBUTION WIDTH 15.8 % (12.0-15.0)
[2021-06-04 20:21] LABS: ALBUMIN 3.8 g/dL (3.2-5.5); ALBUMIN/GLOBULIN RATIO 1.3 (1.0-2.2); BILIRUBIN,TOTAL 0.9 mg/dL (0.2-1.0); CALCIUM 9.1 mg/dL (8.5-10.3); CREATININE 0.9 mg/dL (0.4-1.0); MAGNESIUM 2.3 mg/dL (1.7-2.8); POTASSIUM 3.7 mmol/L (3.5-5.0); TOTAL PROTEIN 6.7 g/dL (6.7-8.2)
[2021-06-04 20:35] LABS: THYROID STIMULATING HORMONE 1.96 uIU/mL (0.34-5.60)
== END 2021-06-04 13:08 | disposition home or self-care (01) ==
LOC: LAB.S 13:07
PROVIDERS: ATTEND Internal Medicine
DX: I10 Essential (primary) hypertension (principal); E83.42 Hypomagnesemia; R53.83 Other fatigue
CPT/HCPCS: 36415; 80053; 83735; 84443; 85025

== ENCOUNTER 2022-05-24 08:00 | Outpatient (CLI) | payer MEDICARE, OTHER | END 2022-05-24 23:59 | disposition home or self-care (01) | LOC: LAB.S 08:00 | PROVIDERS: ATTEND Emergency Medicine | DX: N39.0 Urinary tract infection, site not specified (principal) | CPT/HCPCS: 87077; 87086; 87181 ==

== ENCOUNTER 2022-10-02 09:00 | Outpatient (CLI) | payer MEDICARE, OTHER | END 2022-10-02 09:15 | disposition home or self-care (01) | LOC: LAB.N 09:00 | PROVIDERS: ATTEND Registered Nurse | DX: N39.0 Urinary tract infection, site not specified (principal) | CPT/HCPCS: 87077; 87086; 87181 ==

== ENCOUNTER 2023-06-12 08:56 | Outpatient (CLI) | payer MEDICARE, OTHER ==
[2023-06-12 15:23] LABS: BASOPHILS # (AUTO) 0.1 10^3/uL (0.0-0.1); BASOPHILS % (AUTO) 0.7 %; EOSINOPHILS # (AUTO) 0.1 10^3/uL (0.0-0.7); EOSINOPHILS % (AUTO) 1.4 %; HGB - HEMOGLOBIN 13.1 g/dL (12.0-16.0); LYMPHOCYTES # (AUTO) 1.2 10^3/uL (1.5-3.5); LYMPHOCYTES % (AUTO) 15.8 %; MEAN CORPUSCULAR HEMOGLOBIN 28.7 pg (27.0-31.0); MEAN CORPUSCULAR HGB CONC 31.2 g/dL (32.0-36.0); MEAN CORPUSCULAR VOLUME 91.9 fL (81.0-99.0); MEAN PLATELET VOLUME 10.8 fL (7.9-10.8); MONOCYTES # (AUTO) 0.6 10^3/uL (0.0-1.0); MONOCYTES % (AUTO) 7.8 %; NEUTROPHILS # (AUTO) 5.6 10^3/uL (1.5-6.6); PLT - PLATELET COUNT 242 10^3/uL (130-450); RED BLOOD COUNT 4.57 10^6/uL (4.20-5.40); RED CELL DISTRIBUTION WIDTH 15.6 % (12.0-15.0); WHITE BLOOD COUNT 7.6 x10^3/uL (4.8-10.8)
[2023-06-12 15:33] LABS: ALBUMIN 3.9 g/dL (3.2-5.5); ALBUMIN/GLOBULIN RATIO 1.7 (1.0-2.2); ALKALINE PHOSPHATASE 65 IU/L (42-121); ALT ALANINE AMINOTRANSFERASE 18 IU/L (10-60); AST ASPARTATE AMINOTRANSFERASE 19 IU/L (10-42); BILIRUBIN,TOTAL 0.7 mg/dL (0.2-1.0); BUN - BLOOD UREA NITROGEN 15 mg/dL (6-20); CALCIUM 9.8 mg/dL (8.5-10.3); CARBON DIOXIDE - CO2 31 mmol/L (21-32); CHLORIDE 105 mmol/L (101-111); CHOL/HDL RATIO 2.8 (<4.4); CHOLESTEROL 161 mg/dL; CREATININE 0.8 mg/dL (0.6-1.3); GFR - MDRD 69 (>89); GLUCOSE 100 mg/dL (74-104); HDL CHOLESTEROL 58 mg/dL; LDL CHOLESTEROL,CALCULATED 92 mg/dL; LDL/HDL RATIO 1.6 (<4.4); POTASSIUM 3.7 mmol/L (3.5-4.5); SODIUM 141 mmol/L (135-145); TOTAL PROTEIN 6.2 g/dL (6.4-8.9); TRIGLYCERIDES 55 mg/dL (48-352); VLDL CHOLESTEROL 11 mg/dL
[2023-06-12 15:40] LABS: THYROID STIMULATING HORMONE 1.47 uIU/mL (0.34-5.60)
== END 2023-06-12 08:57 | disposition home or self-care (01) ==
LOC: LAB.S 08:56
PROVIDERS: ATTEND Registered Nurse
DX: I10 Essential (primary) hypertension (principal); I48.21 Permanent atrial fibrillation; Z13.220 Encounter for screening for lipoid disorders; R53.83 Other fatigue
CPT/HCPCS: 36415; 80053; 80061; 83721; 84443; 85025

== ENCOUNTER 2023-06-24 08:00 | Outpatient (CLI) | payer MEDICARE, OTHER ==
--- NOTE | 2023-06-24 12:41 | XRAY Report ---
PROCEDURE: Chest 2V INDICATIONS: PRODUCTIVE COUGH TECHNIQUE: 2 views of the chest were acquired. COMPARISON: 05/14/2021. FINDINGS: Surgical changes and devices: None. Lungs and pleura: No pleural effusions or pneumothorax. Chronic left lateral basilar density, possib ly representing atelectasis versus scarring. Mediastinum: Mediastinal contours appear normal. Moderate cardiomegaly. Bones and chest wall: No suspicious bony lesions. Overlying soft tissues appear unremarkable. IMPRESSION: Cardiomegaly, atelectasis versus scarring in the left lateral lung base. Stable findings. Reviewed by: Paulie Pizano MD on 06/24/2023 12:39 PM PST Approved by: Paulie Pizano MD on 06/24/2023 12:39 PM PST Station ID: [id number]
--- NOTE | 2023-06-24 12:45 | XRAY Report ---
PROCEDURE: Sinus 3+V INDICATIONS: HEADACHE TECHNIQUE: 3 views of the sinuses were acquired. COMPARISON: None. FINDINGS: Sinuses: The visualized sinuses demonstrate no air-fluid levels or mucosal thickening. The visualiz ed mastoids also appear clear. Bones: No suspicious bony lesions. Nasal septum is midline. IMPRESSION: No air-fluid levels to suggest acute sinusitis. Reviewed by: Paulie Pizano MD on 06/24/2023 12:43 PM PST Approved by: Paulie Pizano MD on 06/24/2023 12:43 PM PST Station ID: [id number]
== END 2023-06-24 23:59 | disposition home or self-care (01) ==
LOC: DI.S 08:00
PROVIDERS: ATTEND Physician Assistant Medical
DX: R51.9 Headache, unspecified (principal); I51.7 Cardiomegaly; R91.8 Other nonspecific abnormal finding of lung field

== ENCOUNTER 2023-12-09 12:14 | Outpatient (CLI) | payer MEDICARE, OTHER | END 2023-12-09 23:59 | disposition home or self-care (01) | LOC: LAB.S 12:14 | PROVIDERS: ATTEND Physician Assistant | DX: N39.0 Urinary tract infection, site not specified (principal) | CPT/HCPCS: 87077; 87086; 87181 ==

== ENCOUNTER 2024-01-08 07:00 | Outpatient (CLI) | payer MEDICARE, OTHER ==
--- NOTE | 2024-01-08 11:47 | XRAY Report ---
Tib/Fib RT HISTORY: 83 years of age, RIGHT LEG CELLULITIS/RIGHT ANKLE GOUTY ARTHRITIS TECHNIQUE: Tib/Fib RT COMPARISON: None. FINDINGS/IMPRESSION: Soft tissue swelling of the medial leg with associated surgical clips. No acute fracture or dislocation. Small posterior calcaneus enthesophyte. Mild cortical irregularity at the tip of the medial malleolus, raising concern for osteomyelitis in the right clinical setting. Further evaluation with MRI can be considered if clinically indicated. Reviewed by: Jeni Maya MD on 01/08/2024 11:45 AM PDT Approved by: Jeni Maya MD on 01/08/2024 11:45 AM PDT Station ID: [id number]
== END 2024-01-08 23:59 | disposition home or self-care (01) ==
LOC: DI.S 07:00
PROVIDERS: ATTEND Registered Nurse
DX: L03.115 Cellulitis of right lower limb (principal); M10.071 Idiopathic gout, right ankle and foot; M77.31 Calcaneal spur, right foot; R93.6 Abnormal findings on diagnostic imaging of limbs